=== PATIENT | male | born 1995 | race American Indian/Alaskan Native ===

== ENCOUNTER 2019-02-20 19:55 | Emergency (ER) | payer SELFPAY ==
[2019-02-20 20:01] VITALS: BP 123/71
[2019-02-20] MEDS ORDERED: XYLOCAINE 1% MPF 5 mL INFILTRATI ONE (21:10)
[2019-02-20] MEDS ORDERED: IBUPROFEN PO ONE (21:10)
--- NOTE | 2019-02-20 21:59 | Emergency Department Report ---
- General Chief complaint: Extremity Problem,Nontraumatic Stated complaint: R MIDDLE FINGER INFECTION Time Seen by Provider: 02/20/19 21:09 Source: patient Mode of arrival: Ambulatory Limitations: No Limitations - History of Present Illness Initial comments: 23-year-old -[place] male presents to the emergency room for right middle finger swelling around the cuticle and her right thigh sore from the insect bite. Patient denies any fever or chills no nausea no vomiting. Patient has a current history of HIV. Patient has no other complaints or concerns. MD complaint: insect bite/sting, abscess/boil Onset/Timin Location: R hand, RLE Severity scale (0 -10): 5 Quality: stabbing, aching Consistency: constant Improves with: none Associated symptoms: denies other symptoms Treatments Prior to Arrival: none - Related Data Previous Rx's Medication Instructions Recorded Last Taken Type Clindamycin [Clindamycin CAP] 300 mg PO BID #20 cap 02/20/19 Unknown Rx Ibuprofen [Motrin 600 MG tab] 600 mg PO Q8H PRN #15 tablet 02/20/19 Unknown Rx Sulfamethoxazole/Trimethoprim 1 each PO BID #20 tablet 02/20/19 Unknown Rx [Bactrim 400-80 mg Tablet] traMADol [Ultram 50 MG tab] 50 mg PO Q6HR PRN #12 tablet 02/20/19 Unknown Rx Allergies Allergy/AdvReac Type Severity Reaction Status Date / Time No Known Allergies Allergy Unverified 02/20/19 19:57 Abscess Boil HPI - HPI Chief Complaint: Extremity Problem,Nontraumatic Stated Complaint: R MIDDLE FINGER INFECTION Time Seen by Provider: 02/20/19 21:09 Home Medications: Previous Rx's Medication Instructions Recorded Last Taken Type Clindamycin [Clindamycin CAP] 300 mg PO BID #20 cap 02/20/19 Unknown Rx Ibuprofen [Motrin 600 MG tab] 600 mg PO Q8H PRN #15 tablet 02/20/19 Unknown Rx Sulfamethoxazole/Trimethoprim 1 each PO BID #20 tablet 02/20/19 Unknown Rx [Bactrim 400-80 mg Tablet] traMADol [Ultram 50 MG tab] 50 mg PO Q6HR PRN #12 tablet 02/20/19 Unknown Rx Allergies/Adverse Reactions: Allergies Allergy/AdvReac Type Severity Reaction Status Date / Time No Known Allergies Allergy Unverified 02/20/19 19:57 ED Review of Systems ROS: Stated complaint: R MIDDLE FINGER INFECTION Other details as noted in HPI Comment: All other systems reviewed and negative Constitutional: denies: chills, fever Eyes: denies: eye pain, eye discharge, vision change ENT: denies: ear pain, throat pain Respiratory: denies: cough, shortness of breath, wheezing Cardiovascular: denies: chest pain, palpitations ED Past Medical Hx - Past Medical History Previous Medical History?: Yes Hx HIV: Yes (born with it) - Surgical History Past Surgical History?: No - Social History Smoking Status: Never Smoker Substance Use Type: None - Medications Home Medications: Home Medications Medication Instructions Recorded Confirmed Last Taken Type Clindamycin [Clindamycin CAP] 300 mg PO BID #20 cap 02/20/19 Unknown Rx Ibuprofen [Motrin 600 MG tab] 600 mg PO Q8H PRN #15 tablet 02/20/19 Unknown Rx Sulfamethoxazole/Trimethoprim 1 each PO BID #20 tablet 02/20/19 Unknown Rx [Bactrim 400-80 mg Tablet] traMADol [Ultram 50 MG tab] 50 mg PO Q6HR PRN #12 tablet 02/20/19 Unknown Rx ED Physical Exam - General Limitations: No Limitations General appearance: alert, in no apparent distress - Head Head exam: Present: atraumatic, normocephalic - Eye Eye exam: Present: normal appearance - ENT ENT exam: Present: mucous membranes moist - Neck Neck exam: Present: normal inspection - Neurological Exam Neurological exam: Present: alert, oriented X3 - Expanded Skin Exam Expanded Distribution of rash: RUE Description of rash: Present: tenderness (rt middle finger), erythematous (rt thigh), swelling (rt thigh) ED Course Vital Signs 02/20/19 02/20/19 19:58 19:59 Temperature 98.2 F 98.2 F Pulse Rate 88 95 H Respiratory 18 18 Rate Blood Pressure 123/71 123/71 O2 Sat by Pulse 100 100 Oximetry - I & D Right Finger Type of Procedure: Simple Site: right middle finger Blade Size: 11 I & D Procedure: betadine prep, sterile drapes applied, sterile dressing applied Progress: Patient tolerated procedure well ED Medical Decision Making - Medical Decision Making 23 y/o male comes in right middle finger pain and insect bite to right thigh. I&D and placed on antibiotics and pain. Critical care attestation.: If time is entered above; I have spent that time in minutes in the direct care of this critically ill patient, excluding procedure time. ED Disposition Clinical Impression: Cellulitis of thigh, Perionychia of finger, HIV (human immunodeficiency virus infection) Disposition: - TO HOME OR SELFCARE Is pt being admited?: No Does the pt Need Aspirin: No Condition: Stable Instructions: Paronychia (ED), Cellulitis (ED) Additional Instructions: Completes her antibiotics as prescribed. If his symptoms persist or gets worse please follow-up with her primary care provider. Prescriptions: Sulfamethoxazole/Trimethoprim [Bactrim 400-80 mg Tablet] 1 each PO BID #20 tabl et Clindamycin [Clindamycin CAP] 300 mg PO BID #20 cap Ibuprofen [Motrin 600 MG tab] 600 mg PO Q8H PRN #15 tablet PRN Reason: Pain traMADol [Ultram 50 MG tab] 50 mg PO Q6HR PRN #12 tablet PRN Reason: Pain Referrals: [facility] [Outside] - 3-5 Days
== END 2019-02-20 22:12 | disposition home or self-care (01) ==
LOC: ED 19:55
DX: L03.011 Cellulitis of right finger (principal); L03.115 Cellulitis of right lower limb; Z21 Asymptomatic human immunodeficiency virus [HIV] infection status; Z79.899 Other long term (current) drug therapy
CPT/HCPCS: 99282